=== PATIENT | male | born 2000 | race Caucasian/White ===

== ENCOUNTER 2024-09-01 08:12 | Emergency (ER) | payer SELFPAY ==
[2024-09-01 08:18] VITALS: BP 138/81; PULSE 97; RESP 20; TEMP 36.8; O2SAT 97
--- NOTE | 2024-09-01 08:21 | ED.EAR ---
HPI - Ear Problem General Chief complaint: Ear Stated complaint: ears/throat/body aches Time Seen by Provider: 09/01/24 08:48 Source: patient and RN notes reviewed Mode of arrival: ambulatory Limitations: no limitations History of Present Illness HPI Narrative: 24-year-old male presents with concern for bilateral ear pain, worse on the right. Reports he had sinus symptoms for 1 week. Reports he has been taking an [id number] cold and flu medication. He denies fever. Reports history of ear infections child. Complaint: ear pain Related Data Allergies Allergy/AdvReac Type Severity Reaction Status Date / Time No Known Allergies Allergy Mild Verified 12/29/10 18:03 Review of Systems Review of Systems: CONSTITUTIONAL: Denies malaise, chills, sweats, or fever. EYES: Denies visual changes, redness, or discharge. ENT: Reports rhinorrhea, congestion, sinus pain, bilateral ear pain CARDIOVASCULAR: Denies chest pain, palpitations, or edema. RESPIRATORY: Reports cough. Denies dyspnea. GASTROINTESTINAL: Denies abdominal pain, nausea, vomiting, diarrhea SKIN: Denies rash or itching. MUSCULOSKELETAL: Denies myalgia. NEUROLOGIC: Denies headache. All systems reviewed & are unremarkable except as noted in HPI and below PMFSH Comments At time of signature, agree with nursing past medical, surgical, social and family history. There is no relevant family history pertinent to the presenting complaint Exam Narrative: GENERAL: Well-appearing, well-nourished, and in no acute distress. HEAD: Normocephalic EYES: PERRLA, conjunctivae clear ENT: Nares clear, turbinates edematous, clear discharge. Mucous membranes moist. TM pearly erythematous and bulging bilaterally; no tragal tenderness. Oropharynx not erythematous without lesions. Tonsils not enlarged and without exudate, no drooling, no hoarseness, no trismus, uvula midline. NECK: Supple. No lymphadenopathy CHEST: Clear to auscultation, breath sounds equal. No wheezing, rhonchi, rales, or stridor. No respiratory distress, speaks in full sentences. HEART: Regular rate and rhythm. No murmur heard. SKIN: Warm, dry, no rash. NEURO: Alert and oriented x3. PSYCH: Normal mood and affect Course Course Emergency Course: Patient is aware of diagnosis, understands and agrees to treatment plan. Anticipatory guidance given. Patient agrees to follow-up as directed and is aware of reasons to seek care at the emergency department. Portions of this record may have been created with voice recognition software Level of Care: Express Care Visit Vital Signs Vital signs: Reviewed. Medical Decision Making MDM Narrative Medical decision making narrative: I evaluated this in the [facility]. History is obtained from patient who is an independent historian and physical exam was performed.? Available medical records were reviewed. ? Exam findings and relevant testing show no acute concerns or changes; patient is non-toxic appearing and is in no distress. Differential diagnosis considered: Vega virus, strep pharyngitis, allergic rhinitis, upper respiratory tract infection, sinusitis, rhinosinusitis, nasopharyngitis. viral pharyngitis, otitis media, otitis externa, otitis effusion, cerumen impaction, foreign body. Exam findings show no acute concerns or changes; patient is non-toxic appearing and is in no distress. Patient is appropriate for outpatient treatment and follow-up. ? Differential diagnosis and treatment plan were discussed with the patient. Patient agrees with discussion and after shared medical decision making agrees with plan of care. All questions were answered to the patient's satisfaction. Patient is appropriate for outpatient treatment and follow-up. Critical Care Time Critical Care Time Critical Care Time: No Discharge Plan Discharge Clinical Impression: Otitis media Patient Disposition: Home, Self-Care Condition: Stable Instructions: Antibiotic Form, Ear Infection (ED) Additional Instructions: Take antibiotics as directed. Recommend antihistamine such as Benadryl at night time and Zyrtec or Jazmine during the day until symptoms improve Flonase nasal spray, 2 sprays in each nostril once daily until symptoms improve Also, recommend symptomatic treatment includes: rest, fluids, and increase humidity of the air at home. Recommend Acetaminophen as directed on the bottle to reduce fever, pain Please schedule a follow-up visit with your personal physician for further evaluation and treatment within 3-5days. If your symptoms persist, change or worsen significantly before you can contact your personal physician then please, without delay, go to the emergency department for further evaluation. Patient Language: Mauritian Prescriptions: New pseudoephedrine HCl [12 Hour Decongestant] 120 mg tablet extended release 120 mg PO Q12H PRN (Reason: nasal congestion) Qty: 20 0RF amoxicillin 875 mg tablet 875 mg PO Q12H 10 Days Qty: 20 0RF Follow-up/Referrals: PHYSICIAN,COMMUNICATIONS PROGRAM MANAGER [Primary Care Provider] - Stand Alone Forms: Work/School Release IP Time of Disposition: 08:54
--- OUTSIDE RECORDS SUMMARY | 2024-09-04 11:49 | XMS_ITS | Referral Summary ---
Author Organization [facility] Address [address] [place] [address] Care Team Providers Care Therapeutic Sales Specialist Name Role Phone Rubina Ferreira Ramírez PATROL COMMUNITY SERVICE OFFICER-ASSISTANT TEACHER Primary Care Provider + Source Comments [facility],non-owned Affiliates and Associated Physician Practices is amultiple site organization consisting of ambulatory clinics and hospital sitesin [place], [place], [place] and [place]. This disclosure is being madepursuant to the Care Everywhere program and may not contain all information available regarding this patient. Last updated 18.[facility] Allergies No known active allergies Medications * Be aware that medications may not be up to date on this document. Alwaysverify current medications with the patient. Medication Sig Dispensed Refills Start Date End Date Status methylphenidate CR (CONCERTA) 54 MG tablet Take 54 mg by mouth every morning. Active albuterol HFA (PROVENTIL;VENTOLIN;UT OAIR) 108 (90 BASE) MCG/ACT inhaler Inhale 2 Puffs by mouth every 6 hours as needed. Active budesonide-formoterol (SYMBICORT) 160-4.5 MCG/ACT inhaler Inhale 2 Puffs by mouth 2 times daily Active Active Problems Problem Noted Date Diagnosed Date Ingrown toenail 09/27/2012 Social History Tobacco Use Types Packs/Day Years Used Date Smoking Tobacco: Never Sex and Gender Information Value Date Recorded Sex Assigned at Not on file Gender Identity Not on file Sexual Orientation Not on file Last Filed Vital Signs Vital Sign Reading Time Taken Comments Blood Pressure 116/70 08/13/2016 2:58 PM MEDICAL CHEMIST Pulse 117 08/13/2016 2:58 PM MEDICAL CHEMIST Temperature 36.4 ??C (97.5 ??F) 08/13/2016 2:58 PM CS T Respiratory Rate 16 08/13/2016 2:58 PM MEDICAL CHEMIST Oxygen Saturation 100% 09/27/2012 2:20 PM MEDICAL CHEMIST Inhaled Oxygen Concentration - - Weight 78.7 kg (173 lb 8 oz) 08/13/2016 2:58 PM MEDICAL CHEMIST Height 168.5 cm (5' 6.34 ) 09/27/2012 11:[address] Body Mass Index - - Plan of Treatment Not on file Care Teams Therapeutic Sales Specialist Relationship Specialty Start Date End Date Rubina Ferreira, PATROL COMMUNITY SERVICE OFFICER-ASSISTANT TEACHER [address] [place] [id number] PCP - General Nurse Practitioner 08/30/12
--- OUTSIDE RECORDS SUMMARY | 2024-09-04 11:49 | XMS_ITS | Patient Health Summary ---
Author Organization [facility] Address [address] [place] [address] Care Team Providers Care Control System Manager Name Role Phone Rubina Ferreira Ramírez SEED PRODUCTION FIELD SUPERVISOR-SET UP MECHANIC STAMPING MACHINES Primary Care Provider + Note from [facility],non-owned Affiliates and Associated Physician Practices is amultiple site organization consisting of ambulatory clinics and hospital sitesin [place], [place], [place] and [place]. This disclosure is being madepursuant to the Care Everywhere program and may not contain all information available regarding this patient. Last updated 18.[facility] Allergies No known active allergies Medications * Be aware that medications may not be up to date on this document. Alwaysverify current medications with the patient. * methylphenidate CR (CONCERTA) 54 MG tablet Take 54 mg by mouth every morning. * albuterol HFA (PROVENTIL;VENTOLIN;PROAIR) 108 (90 BASE) MCG/ACT inhaler Inhale 2 Puffs by mouth every 6 hours as needed. * budesonide-formoterol (SYMBICORT) 160-4.5 MCG/ACT inhaler Inhale 2 Puffs by mouth 2 times daily Active Problems Problem Noted Date Diagnosed Date Ingrown toenail 09/27/2012 Social History Tobacco Use Types Packs/Day Years Used Date Smoking Tobacco: Never Sex and Gender Information Value Date Recorded Sex Assigned at Not on file Gender Identity Not on file Sexual Orientation Not on file Last Filed Vital Signs Vital Sign Reading Time Taken Comments Blood Pressure 116/70 08/13/2016 2:58 PM RESEARCH MICROBIOLOGIST Pulse 117 08/13/2016 2:58 PM RESEARCH MICROBIOLOGIST Temperature 36.4 ??C (97.5 ??F) 08/13/2016 2:58 PM CS T Respiratory Rate 16 08/13/2016 2:58 PM RESEARCH MICROBIOLOGIST Oxygen Saturation 100% 09/27/2012 2:20 PM RESEARCH MICROBIOLOGIST Inhaled Oxygen Concentration - - Weight 78.7 kg (173 lb 8 oz) 08/13/2016 2:58 PM RESEARCH MICROBIOLOGIST Height 168.5 cm (5' 6.34 ) 09/27/2012 11:[address] Body Mass Index - - Procedures * STREP A SCREEN - POINT OF CARE (AMB) STL(Performed 08/13/2016) Performed for Acute pharyngitis, unspecified etiology * AVULSION NAIL PLATE(Performed 09/27/2012) Performed for Ingrown toenail Results * STREP A SCREEN (08/13/2016 2:55 PM RESEARCH MICROBIOLOGIST) Strep A Rapid POCT Negative Negative Strep A Internal Control Present Lot # [id number] Expiration Date 8110018 Throat ENTIRE THROAT (SURFACE REGION OF NECK) / Unknown 08/13/2016 2:55 PM RESEARCH MICROBIOLOGIST [facility] - POINT O F CARE ORDERABLES Care Teams Control System Manager Relationship Specialty Start Date End Date Rubina Ferreira APRN-CNP [address] [place] [id number] PCP - General Nurse Practitioner 08/30/12
--- OUTSIDE RECORDS SUMMARY | 2024-09-04 11:49 | XMS_ITS | Data Portability ---
Author Organization ROSEMARY JAELYNDevan Salinas Address [address] [place] [address] Assessment Encounter Date Assessment Date Assessment LastModified by Organization Details LastModified Time 11/02/2016 11/02/2016 h/o Moderate Persistent Asthma. Discussed meds at length with pt and parent. Discussed importance of Symbicort 80/4.5, 2 puffs twice daily every day as preventive med. Albuterol as needed only, per asthma action plan, and follow up for repeat Albuterol use of 2 or more times per day or for concerns, otherwise follow up at 3 months. [email or web address] Not available 11/02/2016 12:33:44 11/14/2016 11/14/2016 ADHD and Allergi c Rhinitis. Discussed to give Fluticasone Nasal [place], 1 spray into each nostril once daily and follow up for increased symptoms or if no resolution of nasal drainage with med. Continue Methylphenidate ER 54 mgs, 1 tab by mouth once daily (#30) and call at 3-4 weeks for refill, pt will need follow up as needed and at 3 mos. [email or web address] Not available 11/14/2016 15:18:33 Plan of Treatment Reminders Order Date Submit Date Provider Last Modified By Organization Details Last Modified Time Details Appointments None recorded . Lab None recorded . Referral psychiat rist referral 2016 017 [email or web address] Not available 7 17:17:48 Procedures None recorded . Surgeries None recorded . Imaging None recorded . Medication Orders Symbicor t 80 mcg-4.5 mcg/actu ation HFA aerosol inhaler 2016 017 [email or web address] Not available 0 15:25:33 albutero l sulfate HFA 90 mcg/actu ation aerosol inhaler 2016 017 INTERFACE Not available 7 12:37:29 methylph enidate ER 54 mg tablet,e xtended release 24 hr 2016 017 [email or web address] Not available 0 11:11:51 citalopr am 10 mg tablet 2019 020 [facility], [address], [place], [place], [id number], 0 11:54:27 albutero l sulfate HFA 90 mcg/actu ation aerosol inhaler 2019 020 [facility]FACE [facility], [address], [place], [place], [id number], 0 11:51:25 Symbicor t 80 mcg-4.5 mcg/actu ation HFA aerosol inhaler 2019 020 canthomyrtle [facility] #62221, [address], [id number], 0 15:25:33 monteluk ast 10 mg tablet 2019 020 INTERFACE [id number], [address] [place], [id number], 0 11:54:28 albutero l sulfate HFA 90 mcg/actu ation aerosol inhaler 2020 021 [facility], [address], [place], [place], [id number], 1 17:49:36 Symbicor t 80 mcg-4.5 mcg/actu ation HFA aerosol inhaler 2020 021 [facility], [address] , [place], [place], [id number], 17:49:37 Patient TargetsNo targets recorded. Patient Instructions Encounter Date Encounter Id Patient Instructions Last Modified By Organization Details Last Modified Time 11/14/2016 [id number] attention defici t hyperactivity disorder (ADHD) in children: care instructions [email or web address] Not available 11/14/2016 15:33:36 01/16/2017 [id number] Hand written lab order Psychiatrist to see Follow up 1 year nd PRn [email or web address] Not available 01/17/2017 20:02:07 04/14/2020 [id number] controlling your asthma: care instructions [facility] Not available 04/14/2020 11:51:19 learning about asthma [facility] Not available 04/14/2020 11:51:19 01/25/2021 [id number] controlling your asthma: care instructions [facility] Not available 01/25/2021 17:49:29 learning about asthma [facility] Not available 01/25/2021 17:49:30 Reason for Referral Psychiatrist Referral for At tention deficit hyperactivity disorder ADHD Referring Physician: Jim Aden, Internal Medicine, Encounter Date: 01/16/2017 Problems Name Problem SNOMED Code Status Onset Date Resolution Date Notes Provider Name and Address Organization Details Recorded Time Ingrowing toenail 931662612 Active Not Available [facility] 0 20:05:56 Paronychia of toe 448768795 Active Not Available [facility] 0 20:05:56 Asthma 334913184 Active Not Available [facility] 0 20:05:56 Attention deficit hyperactivity disorder 946346620 Active Not Available [facility] 0 20:05:56 Problem Notes None recorded. Medical Equipment None Reported. Allergies No known drug allergies Medications Name Sig Start Date Stop Date Status Note LastModified by Organization Details LastModified Time amoxicillin 500 mg capsule 01/17 completed Not Available Not Available Not Available clindamycin HCl 300 mg capsule Take 1 capsule every 8 hours by oral route as directed for 10 days. 01/17 completed Not Available Not Available Not Available azithromyci n 250 mg tablet 04/07 completed Not Available Not Available Not Available citalopram 10 mg tablet TAKE 1 TABLET BY MOUTH EVERY DAY DIRECTED active Not Available Not Available No t Available prednisone 20 mg tablet 04/07 completed Not Available Not Available Not Available methylpheni date ER 54 mg tablet,exte nded release 24 hr Take 1 tablet every day by oral route in the morning for 30 days. 04/07 completed Not Available Not Available Not Available sulfamethox azole 800 mg-trimetho prim 160 mg tablet Take 1 tablet every 12 hours by oral route as directed for 10 days. 01/17 completed Not Available Not Available Not Available bupropion HCl SR 100 mg tablet,12 hr sustained-r elease active Not Available Not Available Not Available meloxicam 7.5 mg tablet 04/07 completed Not Available Not Available Not Available amoxicillin 875 mg tablet 01/17 completed Not Available Not Available Not Available montelukast 10 mg tablet TAKE 1 TABLET BY MOUTH EVERY DAY DIRECTED 2020 active Not Available Not Available Not Avai lable albuterol sulfate HFA 90 mcg/actuati on aerosol inhaler INHALE 2 PUFFS BY MOUTH EVERY 4 HOURS NEEDED - FOR RESCUE ONLY active Not Available Not Available No t Available ondansetron 4 mg disintegrat ing tablet active Not Available Not Available N ot Available budesonide- formoterol HFA 80 mcg-4.5 mcg/actuati on aerosol inhaler 2020 active Not Available Not Available Not Avai lable Wixela Inhub 250 mcg-50 mcg/dose powder for inhalation INHALE 1 PUFF BY MOUTH TWICE DAILY DIRECTED active Not Available Not Available No t Available Fluzone Quad (PF) 60 mcg (15 mcg x 4)/0.5 mL IM syringe ADM 0.5ML IM UTD 04/14 completed Not Available Not Available Not Available Vitals Date Recorded Body height Provider Name an d Address Organization Details Last Updated DateTime 11/02/2016 179.07 cm Mary Ann Bennett [place] [facility] 10/12 12:16:33 Date Recorded Body weight Body mass index (BMI) Provider Name and Address Organization Details Last Updated DateTime 11/02/2016 87648.93 g 19.8 kg/m2 GRACIELA Torres [facility] 11/02/2016 12:16:42 Date Recorded Heart rate Provider Name an d Address Organization Details Last Updated DateTime 11/02/2016 108 /min Mary Ann Bennett [place] [facility] 10/12 12:16:58 Date Recorded Oxygen saturation Oxygen saturation in Arterial blood by Pulse oximetry Provider Name and Address Organization Details Last Updated DateTime 11/02/2016 99 % 99 % Mary Ann Bennett [place] [facility] 11/02/2016 12:17:02 Date Recorded Respiratory rate Provider Name a nd Address Organization Details Last Updated DateTime 11/02/2016 20 /min Mary Ann Bennett [place] [facility] 11/02/2016 12:17:03 Date Recorded Body temperature Provider Name a nd Address Organization Details Last Updated DateTime 11/02/2016 98.1 [degF] Mary Ann Bennett [place] [facility] 11/02/2016 12:17:07 Date Recorded Body height Provider Name an d Address Organization Details Last Updated DateTime 11/14/2016 179.07 cm Daisy Dominguez [place] [facility] 11/14/2016 14:36:59 Date Recorded Body weight Body mass index (BMI) Provider Name and Address Organization Details Last Updated DateTime 11/14/2016 90750.95 g 26.2 kg/m2 Daisy Dominguez [place] [facility] 11/14/2016 14:37:08 Date Recorded Heart rate Provider Name an d Address Organization Details Last Updated DateTime 11/14/2016 105 /min Daisy Dominguez [place] [facility] 11/2016 14:37:23 Date Recorded Oxygen saturation Oxygen saturation in Arterial blood by Pulse oximetry Provider Name and Address Organization Details Last Updated DateTime 11/14/2016 98 % 98 % Daisy Dominguez [place] [facility] 11/14/2016 14:37:27 Date Recorded Respiratory rate Provider Name a nd Address Organization Details Last Updated DateTime 11/14/2016 20 /min Daisy Dominguez [place] [facility] 11/14/2016 14:37:29 Date Recorded Body temperature Provider Name a nd Address Organization Details Last Updated DateTime 11/14/2016 97.7 [degF] Daisy Dominguez [place] [facility] 11/14/2016 14:37:37 Date Recorded Body height Provider Name an d Address Organization Details Last Updated DateTime 01/17/2017 180.34 cm Latoya Hilton GRACIELA [facility] 017 15:54:34 Date Recorded Body weight Body mass index (BMI) Provider Name and Address Organization Details Last Updated DateTime 01/17/2017 71169.59 g 25.8 kg/m2 Latoya Canela GR[facility] 01/17/2017 15:54:34 Date Recorded Heart rate Provider Name an d Address Organization Details Last Updated DateTime 01/17/2017 72 /min Latoyaher Hilton [place] [facility] 017 15:54:47 Date Recorded Body temperature Provider Name a nd Address Organization Details Last Updated DateTime 01/17/2017 97.8 [degF] Latoya Beansteve GRAC[facility]ELA [facility] 2016 15:54:52 Date Recorded Oxygen saturation Oxygen saturation in Arterial blood by Pulse oximetry Provider Name and Address Organization Details Last Updated DateTime 01/17/2017 99 % 99 % Latoya Canela [place] [facility] 01/17/2017 15:54:56 Date Recorded Systolic blood pressure Diastolic blood pressure Provider Name and Address Organization Details Last Updated DateTime 11/02/2016 112 mm[Hg] 76 mm[Hg] Mary Ann Bennett [place] [facility] 11/02/2016 12:16:51 Date Recorded Systolic blood pressure Diastolic blood pressure Provider Name and Address Organization Details Last Updated DateTime 11/14/2016 116 mm[Hg] 60 mm[Hg] Daisy Dominguez [facility] 11/14/2016 14:37:18 Date Recorded Systolic blood pressure Diastolic blood pressure Provider Name and Address Organization Details Last Updated DateTime 01/17/2017 126 mm[Hg] 82 mm[Hg] Latoya Beansteve [facility] 01/17/2017 15:54:42 Social History Question Answer Notes LastModified by Organizat ion Details LastModified Time Tobacco Smoking Status Never Smoker Not Available [facility] 06/15/2020 03:43:24 Animal Exposure? Yes [email or web address] Information not available 08/24/2014 Do You Wear A Helmet When Biking? Yes [id number] Information not available 06/15/2020 Are You Or Have You Been Involved With Bullying? No [id number] Information not available 06/15/2020 What Is Your Level Of Caffeine Consumption? Occasional [id number] Information not available 06/15/2020 What Type Of Compliance Reviewer Do You Use? None [id number] Information not available 06/15/2020 What Type Of Diet Are You Following? REGULAR [id number] Information not available 06/15/2020 Have There Been Any Changes To Your Family Or Social Situation? No [id number] Information not available 06/15/2020 Are There Any Guns Present In Your Home? No [id number] Information not available 06/15/2020 What Is Your Home Situation? Mother [id number] Information not available 06/15/2020 Do You Use Insect Repellent Routinely? Yes [id number] Information not available 06/15/2020 Car Seat Type Or Seat Belt? Seat Belt [email or web address] Information not available 08/24/2014 Parent Involvement? Both Parents Involved [email or web address] Information not available 08/24/2014 Riding In Car Front Seat? Yes [email or web address] Information not available 08/24/2014 What Is Your Parents' Marital Status? Unmarried [id number] Information not available 06/15/2020 Pool Exposure Yes [email or web address] Information not available 08/24/2014 What Is The Name Of Your School? [employer] [id number] Information not available 06/15/2020 Do You Have Smoke And Carbon Monoxide Detectors In Your Home? Yes [id number] Information not available 06/15/2020 Are You Passively Exposed To Smoke? No [email or web address] Information not available 08/24/2014 How Much Tobacco Do You Smoke? No [id number] Information not available 06/15/2020 Do You Use Sunscreen Routinely? Yes [id number] Information not available 06/15/2020 How Many Years Have You Smoked Tobacco? 0 [id number] Information not available 06/15/2020 Year In School 10 [email or web address] Informatio n not available 08/24/2014 Sex: Unknown Functional Status Question Answer Note LastModified by Organization D etails LastModified Time What is your exercise level? Moderate [id number] Information not available 06/15/2020 Mental Status None recorded. Family History Relationship Description Onset Age of this Age Resolved Age Notes LastModified by Organization Details LastModified Time Mother Allergy [email or web address] Not available 0 04/19/2016 16:17:02 Mother Depressive disorder [email or web address] Not available 2015 16:17:02 Mother Migraine [email or web address] Not available 04/19/2016 16:17:02 Father Allergy [email or web address] Not available 0 04/19/2016 16:17:02 Medical History Condition Response Blood Diseases N Ear or Hearing Problems N Thyroid Problems N Depression N Developmental or Behavioral Disorders N Skin Problems N Premature N Anemia N Constipation N Diabetes N Anxiety Disorder N Muscle, Joint, or Bone Problems N Bedwetting N Vision or Eye Problems N Seizures/Epilepsy N Heart Problems/Murmur N Head Injury/Concussion N Cancer N Allergies N Asthma Y ADHD Y Bladder or Kidney Problems N Headaches N Chicken Pox N Autism Spectrum Disorder (ASD) N Immunizations Vaccine Type Date Status Note Provider Nam e and Address Organization Details Recorded Time Influenza, split virus, quadrivalent, preservative 0 completed Not Available [facility] 04/27/2020 20:05:57 meningococcal B, OMV 6 completed Not Available [facility] 08/30/2019 02:47:56 HPV9 6 completed Not Available [facility] 08/30/2019 02:39:17 meningococcal B, OMV 6 completed Not Available [facility] 08/30/2019 02:40:27 HPV9 6 completed Not Available [facility] 08/30/2019 02:32:05 Influenza, split virus, quadrivalent, PF 6 completed Not Available [facility] 08/30/2019 02:43:05 HPV9 7 completed Not Available [facility] 08/30/2019 02:48:36 Hib, unspecified formulation 8 completed Not Available [facility] 04/27/2020 20:05:56 DTaP, unspecified formulation 9 completed Not Available [facility] 04/27/2020 20:05:56 Hib, unspecified formulation 9 completed Not Available [facility] 04/27/2020 20:05:56 Hep A, ped/adol, 2 dose 3 completed Not Available [facility] 04/27/2020 20:05:56 DTaP, unspecified formulation 9 completed Not Available [facility] 04/27/2020 20:05:57 Hib, unspecified formulation 9 completed Not Available [facility] 04/27/2020 20:05:57 DTaP, unspecified formulation 2 completed Not Available [facility] 04/27/2020 20:05:56 DTaP, unspecified formulation 8 completed Not Available [facility] 04/27/2020 20:05:57 DTaP, unspecified formulation 8 completed Not Available [facility] 04/27/2020 20:05:57 Hep A, ped/adol, 2 dose 9 completed Not Available [facility] 04/27/2020 20:05:57 Hib, unspecified formulation 8 completed Not Available [facility] 04/27/2020 20:05:56 meningococcal MCV4, unspecified formulation 4 completed Not Available [facility] 04/27/2020 20:05:57 Tdap 9 completed Not Available [facility] 04/27/2020 20:05:57 MMR 9 completed Not Available [facility] 04/27/2020 20:05:56 IPV 8 completed Not Available [facility] 04/27/2020 20:05:56 IPV 9 completed Not Available [facility] 04/27/2020 20:05:56 Hep B, adolescent or pediatric 9 completed Not Available [facility] 04/27/2020 20:05:56 IPV 8 completed Not Available [facility] 04/27/2020 20:05:57 MMR 2 completed Not Available [facility] 04/27/2020 20:05:56 Hep B, adolescent or pediatric 8 completed Not Available [facility] 04/27/2020 20:05:56 Hep B, adolescent or pediatric 8 completed Not Available [facility] 04/27/2020 20:05:56 IPV 2 completed Not Available [facility] 04/27/2020 20:05:57 meningococcal MCV4, unspecified formulation 9 completed Not Available [facility] 04/27/2020 20:05:56 varicella 9 completed Not Available [facility] 04/27/2020 20:05:56 varicella 0 completed Not Available [facility] 04/27/2020 20:05:56 Influenza, split virus, trivalent, preservative 5 completed Not Available [facility] 08/30/2019 02:39:16 Past Encounters Encounter ID Performer Location Encounter Start Date Encounter Closed Date Diagnosis/Indication Diagnosis SNOMED-CT Code Diagnosis ICD10 Code Diagnosis Note [id number] DAVI Joaquin (Peds) [address] [place] [address] 73753-620 0 08/24/2014 09:31:05 08/24/2014 15:13:59 Attention deficit hyperactivity disorder 129550582 Asthma 693847323 [id number] Rani Flores (Peds) [address] [place] [address] 43721-745 0 11/26/2014 15:27:05 12/01/2014 13:32:30 Asthma 803760488 Attention deficit hyperactivity disorder 492265600 [id number] MD Mark Stone (Peds) [address] [place] [address] 25354-072 0 02/26/2015 11:45:42 02/26/2015 12:56:48 Attention deficit hyperactivity disorder 470786188 Asthma 574202640 [id number] Hope Flores (Peds) [address] [place] [address] [id number] 0 06/07/2015 10:06:04 06/07/2015 12:28:27 Attention deficit hyperactivity disorder 848241004 F90.9 Asthma 208566378 J45.90 9 [id number] Hope Flores (Peds) [address] [place] [address] 02102-502 0 08/16/2015 10:56:49 08/16/2015 13:16:54 Asthma 979785617 J45.909 Attention deficit hyperactivity disorder 435621942 F90.9 [id number] DAVI Joaquin (Peds) [address] [place] [address] 56631-679 0 11/18/2015 11:40:23 11/18/2015 12:46:22 Attention deficit hyperactivity disorder 754845052 F90.9 Asthma 115092458 J45.90 9 [id number] Rani Flores [facility] (Peds) [address] [place] [address] 76329-879 0 01/06/2016 15:23:37 01/07/2016 11:12:31 Ingrowing toenail 109153674 L60.0 No signs of infection. Discussed roomier shoes or open toed shoes. Discussed allowing nails to grow out and stop cutting them so short. RTC if purulent drainage or worsening symptoms. Will recheck at [facility] next month. [id number] Daisy Flores [facility] (Peds) [address] [place] [address] [id number] 0 02/21/2016 11:33:37 02/21/2016 17:24:53 Attention deficit hyperactivity disorder 324312825 F90.9 [id number] Daisy Leoneanuradha Flores [facility] (Peds) [address] [place] [address] 26970-972 0 04/05/2016 16:15:39 04/06/2016 09:45:28 Paronychia of toe 435889818 L03.039 [id number] Sandy Yumi [facility] (Peds) [address] [place] [address] 14075-832 0 04/19/2016 16:03:59 04/20/2016 11:46:44 Ingrowing toenail 058708681 L60.0 Paronychia of toe 605683 002 L03.039 Attention deficit hyperactivity disorder 108757992 F90.9 [id number] GRACIELA Cloud [facility] (Peds) [address] [place] [address] 97913-763 0 04/24/2016 16:27:46 04/25/2016 11:07:09 Active or passive immunization 794045695 Z23 [id number] DAVI Joaquin [facility] (Peds) [address] [place] [address] 68287-276 0 07/19/2016 10:07:07 07/19/2016 10:55:53 Attention deficit hyperactivity disorder 221634358 F90.9 [id number] GRACIELA Pandya [facility] (Peds) [address] [place], [place] [id number] 0 09/29/2016 10:25:24 09/29/2016 12:27:30 Active or passive immunization 712535540 Z23 [id number] DAVI Joaquin (Peds) [address] [place] [address] 0 11/02/2016 12:05:05 11/03/2016 14:17:50 Moderate persistent asthma 625214615 J45.40 [id number] DAVI Joaquin (Peds) [address] [place] [address] 0 11/14/2016 14:29:32 11/15/2016 15:45:11 Attention deficit hyperactivity disorder 839817193 F90.9 Allergic rhinitis 736090 04 J30.9 [id number] MD Mark Bowman (Adult Med) [address] [place] [address] 0 01/17/2017 15:47:14 01/18/2017 11:27:52 Adult health examination 312515036 Z00.01 Attention deficit hyperactivity disorder 397077655 F90.9 He needs to establish care with the psychiatri st as I do not treat ADHD Asthma 026420602 J45.90 9 [id number] MD Mark Bateman (Adult Med) [address] [place] [address] 0 04/14/2020 11:05:20 04/15/2020 15:47:39 Asthma 602058671 J45.909 as ordered bel;ow. Anxiety 74986681 F41.9 Discussed with patient, he agreed to try other than wellbutrin , same as bupropion. Moderate p ersistent asthma 604752879 J45.40 Ran out the inhalers. [id number] MD Mark Bateman (Adult Med) [address] [place] [address] 0 01/25/2021 09:13:59 01/26/2021 07:16:22 Asthma 810145263 J45.909 as ordered below. Health Concerns Section Related Observation LastModified by Organization Detai ls LastModified Time None Recorded Concern Status LastModified by Organization Details LastModified Time None Recorded Advance Directives Directive None Recorded Payers Encounter Date Sequence Insurance Name Policy Number Policy Yap Covered Member ID Yap Member ID Guarantor Name 11/02/2016 1 [employer] (POS) [id number] Marvin Reese [id number] Mary Ann Delia 11/14/2016 1 [employer] (POS) [id number] Marvin Reese [id number] Mary Ann Delia 01/16/2017 1 [employer] (POS) [id number] Marvin Reese [id number] Mary Ann Lin 04/14/2020 1 *SELF PAY* Ch tierra Delia 01/25/2021 1 *SELF PAY* Ch tierra Delia 01/25/2021 2 [place] [facility] PUBLIC AID Douglas Contreras [id number] Mary Ann Lin Notes Date Note Type Note Provider Name and Address Organization Details Recorded Time 11/02/2016 text/html Pt here for foll ow up of Moderate Persistent Asthma. Mother and pt state that pt needs refill of Symbicort. He states he has problems with his Asthma if he does not take his Symbicort as ordered. However, he had not been taking the Symbicort 2 puffs every 12 hrs as it was ordered - he states he would forget it, and was usually taking it just at bedtime. He states that he did have to use Albuterol approx once per week during this time frame (past few months). DAVI Joaquin Attn: [address] [place], [address], [facility] 11/02/2016 12:37:09 11/14/2016 text/html Pt here for ADHD follow up visit. Pt takes Methylphenidate ER 54 mgs by mouth each morning. The med is working well for pt. He is getting C's in school and notes that if he does not take his meds the grades drop. He is well supported by teachers. He is not getting into trouble at school or at home. He is sleeping thru the night and has good appetite. He is getting along well with peers. He is able to complete tasks, move on to next task, and multi-task. 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 Rubina Skouby, CPNP_PC Attn: Accounting[address] [facility], [place], [address], [place] [facility] 11/14/2016 15:22:30 01/16/2017 text/html There was no int [facility] access available when the patient was seen 01/16/2017. 16y/o WM who presents with his mother to establish care.PMHX: Asthma, ADHD Jim Aden MD Attn: Accounting[address] [facility], [place], [address], [facility] 01/18/2017 12:30:59 04/14/2020 text/html This is phone vi sit, due to brown virus pandemic, he understood and agreed, history of asthma, NKDA, also has anxiety, dose not want wellbutrin which came from different provider. Also refills of his inhalers. Kirt Gonzalez MD Attn: Accounting[address] [facility], [place], [address], [facility] 04/14/2020 11:54:48 01/25/2021 text/html Phone visit, due to brown virus pandemic, he understood and agreed, NKDA, history of asthma , wants refill inhalers. Kirt Gonzalez MD Attn: Accounting[address] [facility], [place], [address], [facility] 01/25/2021 17:49:35
--- OUTSIDE RECORDS SUMMARY | 2024-09-04 11:49 | XMS_ITS | Clinical Summary ---
Author Organization [facility] Address [address] [place] [address] Care Team Providers Care Cpr Ambulance Driver Name Role Phone Rubina Ferreira Ramírez FIELD SERVICE CONSULTANT-BASKETBALL ASSEMBLER Primary Care Provider + Source Comments [facility],non-owned Affiliates and Associated Physician Practices is amultiple site organization consisting of ambulatory clinics and hospital sitesin [place], [place], [place] and [place]. This disclosure is being madepursuant to the Care Everywhere program and may not contain all information available regarding this patient. Last updated 18.[facility] Allergies No known active allergies Medications * Be aware that medications may not be up to date on this document. Alwaysverify current medications with the patient. Medication Sig Dispensed Refills Start Date End Date Status methylphenidate CR (CONCERTA) 54 MG tablet Take 54 mg by mouth every morning. Active albuterol HFA (PROVENTIL;VENTOLIN;AZ OAIR) 108 (90 BASE) MCG/ACT inhaler Inhale [...] Comments Blood Pressure 116/70 08/13/2016 2:58 PM MANAGER [employer] Pulse 117 08/13/2016 2:58 PM [employer]GER [employer] Temperature 36.4 ??C (97.5 ??F) 08/13/2016 2:58 PM CS T Respiratory Rate 16 08/13/2016 2:58 PM MANAGER [employer] Oxygen Saturation 100% 09/27/2012 2:20 PM MANAGER [employer] Inhaled Oxygen Concentration - - Weight 78.7 kg (173 lb 8 oz) 08/13/2016 2:58 PM MANAGER [employer] Height 168.5 cm (5' 6.34 ) 09/27/2012 11:[address] Body Mass Index - - Plan of Treatment Health Maintenance Due Date Last Done Comments HIV SCREENING 2013 HPV VACCINE (1 - Male 3-dose series) 2013 HEPATITIS C SCREENING 02/05/2016 DTAP/TDAP/TD VACCINES (1 - Tdap) 2017 HEPATITIS B VACCINE (1 of 3 - 19+ 3-dose series) 2017 COVID-19 VACCINE (1 - 2023-2 5 season) 2024 INFLUENZA VACCINE (#1) 2024 DEPRESSION SCREENING 08/13/2024 ZOSTER VACCINE (1 of 2) 02/10/2048 HIB VACCINE Aged Out No longer eligi ble based on patient's age to complete this topic MENINGOCOCCAL (Group B) VACCINE Aged Out No longer eligible based on patient's age to complete this topic MENINGOCOCCAL VACCINE Aged Out No vyonne bertha eligible based on patient's age to complete this topic PNEUMOCOCCAL VACCINE Aged Out No long er eligible based on patient's age to complete this topic Care Teams Cpr Ambulance Driver Relationship Specialty Start Date End Date Rubina Ferreira, FIELD SERVICE CONSULTANT-BASKETBALL ASSEMBLER [address] [place] [address] PCP - General Nurse Practitioner 08/30/12
== END 2024-09-01 09:02 | disposition home or self-care (01) ==
PROVIDERS: Emergency Provider Nurse Practitioner
DX: H66.93 Otitis media, unspecified, bilateral (principal)
CPT/HCPCS: 99203; G0463